=== PATIENT | female | born 1935 | race Caucasian/White ===

== ENCOUNTER 2017-03-01 11:09 | Emergency (ER) | payer OTHER ==
[~2017-03-01] VITALS: Ht 167.6 cm; Wt 97.6 kg
[2017-03-01 12:25] LABS: EOSINOPHIL (%) 0.3 % (0-5); HEMATOCRIT 28.3 % (36.0-46.0); IMMATURE GRANULOCYTE (%) 0.4 % (0.0-0.7); IMMATURE GRANULOCYTE COUNT 0.1 K/uL; INSTRUMENT ABS NEUTROPHIL CT 12.1 K/uL; MCH 31.7 PG (29.0-34.0); MCHC 33.9 G/DL (30.0-36.0); MCV 93.4 FL (83-99); MONOCYTE (%) 4.3 % (3-12); MONOCYTE COUNT 0.6 K/uL (0-0.8); NEUTROPHIL (%) 87.7 % (45-76); NEUTROPHIL COUNT 12.1 K/uL (1.8-6.4); PLATELET COUNT 163 K/uL (156-360); RBC DIS.WIDTH-CV 12.8 % (11.8-14.6); RBC DIS.WIDTH-SD 44.1 % (39-53); RED BLOOD COUNT 3.03 M/uL (3.80-5.20); WHITE BLOOD COUNT 13.8 K/uL (4.1-10.2)
[2017-03-01 12:36] LABS: CHLORIDE 110 mEq/L (99-109); POTASSIUM 3.5 mEq/L (3.7-5.4); SODIUM 141 mEq/L (136-147)
[2017-03-01 12:38] LABS: GLUCOSE 141 mg/dL (70-99)
[2017-03-01 12:40] LABS: ANION GAP 8 MEQ/L (2-14); TOTAL BILIRUBIN 0.7 mg/dL (0.0-1.0)
[2017-03-01 12:42] LABS: ALKALINE PHOSPHATASE 63 IU/L (3-129); GFR ESTIMATE (CALCULATED) > 59 mL/min/
[2017-03-01 12:43] LABS: UREA NITROGEN (BUN) 19 mg/dL (9-23)
[2017-03-01 12:45] LABS: LIPASE 38 U/L (1.0-51.0)
[2017-03-01] MEDS ORDERED: AMLODIPINE BESYL5 MG PO (14:24)
[2017-03-01] MEDS ORDERED: POTASSIUM CHLOR8 ME3 PO (14:25)
[2017-03-01] MEDS ORDERED: QUINAPRIL HCL40 MG PO (14:25)
[2017-03-01] MEDS ORDERED: DONEPEZIL HCL10 MG PO (14:25)
[2017-03-01] MEDS ORDERED: PAROXETINE HCL40 MG PO (14:25)
[2017-03-01 14:30] LABS: INTER. NORMALIZED RATIO 1.2; PROTHROMBIN TIME 13.2 SEC (10.2-12.9)
[2017-03-01 14:32] LABS: PTT 24.8 SEC (25-37)
[2017-03-01 14:34] LABS: ADD MIUA? NO; BILIRUBIN NEGATIVE; BLOOD NEGATIVE; COLOR YELLOW ((YELLOW)); GLUCOSE (STRIP) NEGATIVE; KETONES NEGATIVE; LEUKOCYTES NEGATIVE; NITRITE NEGATIVE; PROTEIN (STRIP) 30; SPECIFIC GRAVITY 1.038 (1.000-1.030); UCUL ADDED? NO; UROBILINOGEN 0.2 MG/DL (0.2-1.0)
[2017-03-01 15:38] VITALS: BP 165/76
== END 2017-03-01 15:39 | disposition short-term general hospital (02) ==
LOC: EME 11:09
PROVIDERS: Emergency Medicine
DX: S36.031A Moderate laceration of spleen, initial encounter (principal); W01.0XXA Fall on same level from slipping, tripping and stumbling without subsequent striking against object, initial encounter; Y92.511 Restaurant or cafe as the place of occurrence of the external cause; D64.9 Anemia, unspecified; K44.9 Diaphragmatic hernia without obstruction or gangrene; J90 Pleural effusion, not elsewhere classified; N28.1 Cyst of kidney, acquired; I70.0 Atherosclerosis of aorta; M85.88 Other specified disorders of bone density and structure, other site; M51.37 Other intervertebral disc degeneration, lumbosacral region; M43.06 Spondylolysis, lumbar region; Z90.49 Acquired absence of other specified parts of digestive tract; I10 Essential (primary) hypertension; Z87.891 Personal history of nicotine dependence
CPT/HCPCS: 74177; 80053; 81003; 83605; 83690; 85025; 85610; 85730; 86850; 86900; 86901; 93005; 99281; 99285; J2405; J7030

== ENCOUNTER 2017-06-24 16:54 | Inpatient (IN) | payer OTHER ==
[~2017-06-24] VITALS: Ht 162.6 cm; Wt 86.9 kg
[~2017-06-24 16:54] MED LIST: AMLODIPINE BESYL5 MG PO; DONEPEZIL HCL10 MG PO; PAROXETINE HCL40 MG PO; POTASSIUM CHLOR8 ME3 PO; QUINAPRIL HCL40 MG PO
[2017-06-24] MEDS ORDERED: MYRBETRIQ25 MG PO (17:38)
[2017-06-24 17:51] LABS: HEMATOCRIT 28.1 % (36.0-46.0); HEMOGLOBIN 9.4 G/DL (11.9-15.5); MCH 29.8 PG (29.0-34.0); MCHC 33.5 G/DL (30.0-36.0); MCV 89.2 FL (83-99); PLATELET COUNT 528 K/uL (156-360); RBC DIS.WIDTH-SD 48.7 % (39-53); RED BLOOD COUNT 3.15 M/uL (3.80-5.20); WHITE BLOOD COUNT 9.5 K/uL (4.1-10.2)
[2017-06-24 18:02] LABS: ALBUMIN 3.1 g/dL (3.2-4.8); CHLORIDE 97 mEq/L (99-109); POTASSIUM 4.1 mEq/L (3.7-5.4); SODIUM 138 mEq/L (136-147)
[2017-06-24 18:04] LABS: GLUCOSE 125 mg/dL (70-99); TOTAL PROTEIN 6.8 g/dL (6.4-8.3)
[2017-06-24 18:06] LABS: TOTAL BILIRUBIN 0.6 mg/dL (0.0-1.0)
[2017-06-24 18:08] LABS: ALKALINE PHOSPHATASE 120 IU/L (3-129); CREATININE 5.5 mg/dL (0.6-1.3); GFR ESTIMATE (CALCULATED) 8 mL/min/
[2017-06-24 18:10] LABS: AST (GOT) 17 IU/L (2-34)
[2017-06-24 18:11] LABS: ALT (GPT) 12 IU/L (3-49)
[2017-06-24 18:12] LABS: UREA NITROGEN (BUN) 118 mg/dL (9-23)
[2017-06-24] MEDS ORDERED: FUROSEMIDE40 MG PO (18:35)
[2017-06-24] MEDS ORDERED: XARELTO20 MG PO (18:36)
[2017-06-24] MEDS ORDERED: ADULT ASPIRIN81 MG PO (18:36)
[2017-06-24] MEDS ORDERED: VITAMIN D31000 UNIT PO (18:36)
[2017-06-24] MEDS ORDERED: METOLAZONE2.5 MG PO (18:36)
[2017-06-24] MEDS ORDERED: XARELTO15 MG PO (18:36)
[2017-06-24 19:56] LABS: APPEARANCE CLEAR ((CLEAR)); BILIRUBIN NEGATIVE; BLOOD NEGATIVE; COLOR YELLOW ((YELLOW)); GLUCOSE (STRIP) NEGATIVE; KETONES NEGATIVE; LEUKOCYTES NEGATIVE; NITRITE NEGATIVE; PROTEIN (STRIP) NEGATIVE; SPECIFIC GRAVITY 1.012 (1.000-1.030); UCUL ADDED? NO; UROBILINOGEN 0.2 MG/DL (0.2-1.0)
[2017-06-24 20:03] LABS: ACETAMINOPHEN (TYLENOL) < 10 mcg/mL (10-30); SALICYLATE < 5.0 MG/DL (15-30)
[2017-06-24 20:09] LABS: BASE EXCESS -0.9 mEq/L (-3 to +3); BICARBONATE 23.4 mEq/L (22-26); COMMENTS - BLOOD GASES C+; FI02 21 %; PCO2 36 mm Hg (35-45); PO2 68 mm Hg (80-100); SITE RR; TOTAL RESP RATE 16 resp/min; pH 7.42 (7.35-7.45)
[2017-06-24 20:57] LABS: PTT 34.9 SEC (25-37)
[2017-06-24 20:59] LABS: INTER. NORMALIZED RATIO 3.3
[2017-06-25] VITALS (7 sets, daily range): BP systolic 91–126; BP diastolic 50–59
[2017-06-25 02:33] LABS: PHOSPHORUS 5.4 mg/dL (2.5-4.9)
[2017-06-25 06:12] LABS: BASOPHIL (%) 0.7 % (0-1); BASOPHIL COUNT 0.1 K/uL (0-0.1); EOSINOPHIL (%) 3.5 % (0-5); EOSINOPHIL COUNT 0.4 K/uL (0-0.3); HEMATOCRIT 26.8 % (36.0-46.0); HEMOGLOBIN 8.6 G/DL (11.9-15.5); IMMATURE GRANULOCYTE (%) 0.5 % (0.0-0.7); LYMPHOCYTE (%) 31.2 % (15-42); LYMPHOCYTE COUNT 3.2 K/uL (1.0-2.8); MCH 28.8 PG (29.0-34.0); MCHC 32.1 G/DL (30.0-36.0); MCV 89.6 FL (83-99); MONOCYTE COUNT 0.7 K/uL (0-0.8); NEUTROPHIL (%) 57.1 % (45-76); NEUTROPHIL COUNT 5.8 K/uL (1.8-6.4); PLATELET COUNT 453 K/uL (156-360); RBC DIS.WIDTH-CV 15.2 % (11.8-14.6); RBC DIS.WIDTH-SD 50.2 % (39-53); RED BLOOD COUNT 2.99 M/uL (3.80-5.20); WHITE BLOOD COUNT 10.2 K/uL (4.1-10.2)
[2017-06-25 06:21] LABS: INTER. NORMALIZED RATIO 2.3
[2017-06-25 06:24] LABS: PTT 30.6 SEC (25-37)
[2017-06-25 06:39] LABS: ALBUMIN 2.5 G/DL (3.2-4.8); ALKALINE PHOSPHATASE 97 IU/L (3-129); ALT (GPT) 9 IU/L (3-49); AST (GOT) 13 IU/L (2-34); CHLORIDE 101 MEQ/L (99-109); CREATININE 4.6 MG/DL (0.6-1.3); GFR ESTIMATE (CALCULATED) 10 mL/min/; GLUCOSE 94 mg/dL (70-99); PHOSPHORUS 4.9 mg/dL (2.5-4.9); SODIUM 136 MEQ/L (136-147); TOTAL BILIRUBIN 0.6 MG/DL (0.0-1.0); TOTAL PROTEIN 5.4 G/DL (6.4-8.3)
[2017-06-25 06:42] LABS: UREA NITROGEN (BUN) 101 mg/dL (9-23)
[2017-06-25 10:01] LABS: INTER. NORMALIZED RATIO 2.2
[2017-06-25 10:03] LABS: PTT 31.8 SEC (25-37)
[2017-06-26 03:32] VITALS: BP 110/57
[2017-06-26 07:30] VITALS: BP 103/55
[2017-06-26 09:04] LABS: HEMOGLOBIN 8.9 G/DL (11.9-15.5); MCH 29.8 PG (29.0-34.0); MCV 90.3 FL (83-99); PLATELET COUNT 394 K/uL (156-360); RBC DIS.WIDTH-CV 15.3 % (11.8-14.6); RBC DIS.WIDTH-SD 50.9 % (39-53); RED BLOOD COUNT 2.99 M/uL (3.80-5.20)
[2017-06-26 09:31] LABS: CHLORIDE 102 MEQ/L (99-109); CREATININE 3.8 MG/DL (0.6-1.3); GFR ESTIMATE (CALCULATED) 12 mL/min/; GLUCOSE 97 mg/dL (70-99); POTASSIUM 3.7 MEQ/L (3.7-5.4); SODIUM 136 MEQ/L (136-147); UREA NITROGEN (BUN) 91 mg/dL (9-23)
[2017-06-26 11:00] VITALS: BP 118/56
[2017-06-26 15:30] VITALS: BP 111/56
[2017-06-26 15:32] LABS: INTER. NORMALIZED RATIO 1.6
[2017-06-26 15:35] LABS: PTT 61.8 SEC (25-37)
[2017-06-26 19:33] VITALS: BP 114/68
[2017-06-26 23:43] VITALS: BP 136/60
[2017-06-27 03:57] VITALS: BP 129/61
[2017-06-27 07:15] LABS: HEMATOCRIT 27.1 % (36.0-46.0); HEMOGLOBIN 8.6 G/DL (11.9-15.5); MCH 28.4 PG (29.0-34.0); MCHC 31.7 G/DL (30.0-36.0); MCV 89.4 FL (83-99); PLATELET COUNT 435 K/uL (156-360); RBC DIS.WIDTH-CV 15.3 % (11.8-14.6); RBC DIS.WIDTH-SD 49.7 % (39-53); RED BLOOD COUNT 3.03 M/uL (3.80-5.20); WHITE BLOOD COUNT 10.6 K/uL (4.1-10.2)
[2017-06-27 07:36] LABS: INTER. NORMALIZED RATIO 1.5
[2017-06-27 07:39] LABS: CHLORIDE 103 MEQ/L (99-109); CREATININE 3.3 MG/DL (0.6-1.3); GFR ESTIMATE (CALCULATED) 14 mL/min/; GLUCOSE 93 mg/dL (70-99); POTASSIUM 3.6 MEQ/L (3.7-5.4); SODIUM 135 MEQ/L (136-147); UREA NITROGEN (BUN) 81 mg/dL (9-23)
[2017-06-27 07:55] VITALS: BP 139/68
[2017-06-27 08:11] LABS: PTT 59.7 SEC (25-37)
[2017-06-27 11:23] VITALS: BP 116/57
[2017-06-27 16:05] VITALS: BP 129/58
[2017-06-27 18:53] VITALS: BP 112/57
[2017-06-27 22:37] VITALS: BP 116/74
[2017-06-28 03:42] VITALS: BP 0104/57
[2017-06-28 06:59] LABS: HEMATOCRIT 26.6 % (36.0-46.0); HEMOGLOBIN 8.4 G/DL (11.9-15.5); MCH 28.3 PG (29.0-34.0); MCHC 31.6 G/DL (30.0-36.0); MCV 89.6 FL (83-99); PLATELET COUNT 444 K/uL (156-360); RBC DIS.WIDTH-CV 15.2 % (11.8-14.6); RBC DIS.WIDTH-SD 49.4 % (39-53); RED BLOOD COUNT 2.97 M/uL (3.80-5.20); WHITE BLOOD COUNT 10.5 K/uL (4.1-10.2)
[2017-06-28 07:06] LABS: INTER. NORMALIZED RATIO 1.6
[2017-06-28 07:09] LABS: PTT 51.6 SEC (25-37)
[2017-06-28 07:31] LABS: ALBUMIN 2.5 G/DL (3.2-4.8); CHLORIDE 104 MEQ/L (99-109); CREATININE 2.7 MG/DL (0.6-1.3); GFR ESTIMATE (CALCULATED) 18 mL/min/; GLUCOSE 110 mg/dL (70-99); GLUCOSE 111 mg/dL (70-99); PHOSPHORUS 3.7 mg/dL (2.5-4.9); POTASSIUM 3.6 MEQ/L (3.7-5.4); SODIUM 135 MEQ/L (136-147); SODIUM 136 MEQ/L (136-147); UREA NITROGEN (BUN) 71 mg/dL (9-23); UREA NITROGEN (BUN) 72 mg/dL (9-23)
[2017-06-28 07:33] VITALS: BP 125/59
[2017-06-28 14:43] LABS: INTER. NORMALIZED RATIO 1.9
[2017-06-28 14:46] LABS: PTT 40.3 SEC (25-37)
[2017-06-28 16:25] VITALS: BP 106/58
[2017-06-28 19:10] VITALS: BP 120/56
[2017-06-28 21:47] LABS: INTER. NORMALIZED RATIO ND; PTT ND SEC (25-37)
[2017-06-28 22:23] LABS: INTER. NORMALIZED RATIO 2.3
[2017-06-28 23:04] VITALS: BP 140/64
[2017-06-29 00:31] LABS: PTT 159.4 SEC (25-37)
[2017-06-29 03:42] VITALS: BP 116/62
[2017-06-29 07:40] VITALS: BP 128/77
[2017-06-29 08:57] LABS: BASOPHIL (%) 0.6 % (0-1); BASOPHIL COUNT 0.1 K/uL (0-0.1); EOSINOPHIL (%) 2.9 % (0-5); EOSINOPHIL COUNT 0.4 K/uL (0-0.3); HEMATOCRIT 29.7 % (36.0-46.0); HEMOGLOBIN 9.5 G/DL (11.9-15.5); IMMATURE GRANULOCYTE (%) 0.5 % (0.0-0.7); LYMPHOCYTE (%) 24.3 % (15-42); MCH 29.7 PG (29.0-34.0); MCV 92.8 FL (83-99); MONOCYTE (%) 7.4 % (3-12); MONOCYTE COUNT 0.9 K/uL (0-0.8); NEUTROPHIL (%) 64.3 % (45-76); NEUTROPHIL COUNT 7.9 K/uL (1.8-6.4); PLATELET COUNT 406 K/uL (156-360); RBC DIS.WIDTH-CV 15.5 % (11.8-14.6); RBC DIS.WIDTH-SD 52.4 % (39-53); WHITE BLOOD COUNT 12.2 K/uL (4.1-10.2)
[2017-06-29 09:11] LABS: INTER. NORMALIZED RATIO 2.4
[2017-06-29 09:27] LABS: ALBUMIN 2.7 G/DL (3.2-4.8); CHLORIDE 106 MEQ/L (99-109); GFR ESTIMATE (CALCULATED) 24 mL/min/; GLUCOSE 112 mg/dL (70-99); PHOSPHORUS 2.6 mg/dL (2.5-4.9); POTASSIUM 4.1 MEQ/L (3.7-5.4); SODIUM 138 MEQ/L (136-147); UREA NITROGEN (BUN) 61 mg/dL (9-23)
[2017-06-29 09:54] LABS: CREATININE 2.1 MG/DL (0.6-1.3)
[2017-06-29 12:06] VITALS: BP 110/67
[2017-06-29 16:58] VITALS: BP 127/69
[2017-06-29 20:19] VITALS: BP 116/71
[2017-06-29 23:30] VITALS: BP 121/58
[2017-06-30 01:59] LABS: APPEARANCE SL.HAZY ((CLEAR)); BILIRUBIN NEGATIVE; BLOOD NEGATIVE; COLOR YELLOW ((YELLOW)); GLUCOSE (STRIP) NEGATIVE; KETONES NEGATIVE; LEUKOCYTES SMALL; NITRITE NEGATIVE; PROTEIN (STRIP) NEGATIVE; SPECIFIC GRAVITY 1.012 (1.000-1.030); UROBILINOGEN 0.2 MG/DL (0.2-1.0)
[2017-06-30 02:05] LABS: BACTERIA RARE /HPF; EPITHELIAL CELLS 2+ /HPF; HYALINE CASTS 0-5 /LPF; MUCUS TRACE /LPF; RED BLOOD CELLS NONE SEEN /HPF (0-5); UCUL ADDED? NO; WHITE BLOOD CELLS 0-5 /HPF (0-5)
[2017-06-30 04:11] VITALS: BP 119/67
[2017-06-30 06:16] LABS: BASOPHIL (%) 0.5 % (0-1); BASOPHIL COUNT 0.1 K/uL (0-0.1); EOSINOPHIL (%) 3.3 % (0-5); EOSINOPHIL COUNT 0.3 K/uL (0-0.3); HEMATOCRIT 23.9 % (36.0-46.0); HEMOGLOBIN 7.6 G/DL (11.9-15.5); IMMATURE GRANULOCYTE (%) 0.3 % (0.0-0.7); LYMPHOCYTE (%) 22.5 % (15-42); LYMPHOCYTE COUNT 2.2 K/uL (1.0-2.8); MCH 28.8 PG (29.0-34.0); MCHC 31.8 G/DL (30.0-36.0); MCV 90.5 FL (83-99); MONOCYTE (%) 7.2 % (3-12); MONOCYTE COUNT 0.7 K/uL (0-0.8); NEUTROPHIL (%) 66.2 % (45-76); NEUTROPHIL COUNT 6.5 K/uL (1.8-6.4); PLATELET COUNT 382 K/uL (156-360); RBC DIS.WIDTH-CV 15.6 % (11.8-14.6); RED BLOOD COUNT 2.64 M/uL (3.80-5.20); WHITE BLOOD COUNT 9.9 K/uL (4.1-10.2)
[2017-06-30 06:26] LABS: INTER. NORMALIZED RATIO 3.6
[2017-06-30 06:28] LABS: PTT 69.5 SEC (25-37)
[2017-06-30 06:44] LABS: ALBUMIN 2.2 G/DL (3.2-4.8); CHLORIDE 107 MEQ/L (99-109); GFR ESTIMATE (CALCULATED) 33 mL/min/; GLUCOSE 110 mg/dL (70-99); PHOSPHORUS 2.5 mg/dL (2.5-4.9); SODIUM 139 MEQ/L (136-147); UREA NITROGEN (BUN) 49 mg/dL (9-23)
[2017-06-30 06:46] LABS: CREATININE 1.6 MG/DL (0.6-1.3)
[2017-06-30 07:00] VITALS: BP 131/66
[2017-06-30 08:49] LABS: HEMATOCRIT 26.1 % (36.0-46.0); HEMOGLOBIN 8.3 G/DL (11.9-15.5); MCV 90.9 FL (83-99)
[2017-06-30 08:54] LABS: IRON 19 MCG/DL (35-150); TRANSFERRIN (TIBC) 94.5 mg/dL (215-380); TRANSFERRIN SATUR. 20 % (20-55)
[2017-06-30 09:27] LABS: FERRITIN 442 NG/ML (10-291)
[2017-06-30 11:10] VITALS: BP 136/70
[2017-06-30 15:00] VITALS: BP 117/60
[2017-06-30 19:30] VITALS: BP 146/80
[2017-07-01] VITALS: BP 140/77
[2017-07-01 06:45] LABS: BASOPHIL (%) 0.3 % (0-1); EOSINOPHIL (%) 2.6 % (0-5); EOSINOPHIL COUNT 0.3 K/uL (0-0.3); HEMATOCRIT 22.9 % (36.0-46.0); HEMOGLOBIN 7.1 G/DL (11.9-15.5); IMMATURE GRANULOCYTE (%) 0.4 % (0.0-0.7); LYMPHOCYTE (%) 24.3 % (15-42); LYMPHOCYTE COUNT 2.5 K/uL (1.0-2.8); MCH 28.6 PG (29.0-34.0); MCV 92.3 FL (83-99); MONOCYTE (%) 7.6 % (3-12); MONOCYTE COUNT 0.8 K/uL (0-0.8); NEUTROPHIL (%) 64.8 % (45-76); NEUTROPHIL COUNT 6.8 K/uL (1.8-6.4); NRBC (%) 0.2 /100 WBC (0-0); PLATELET COUNT 349 K/uL (156-360); RBC DIS.WIDTH-CV 15.5 % (11.8-14.6); RBC DIS.WIDTH-SD 52.2 % (39-53); RED BLOOD COUNT 2.48 M/uL (3.80-5.20); WHITE BLOOD COUNT 10.4 K/uL (4.1-10.2)
[2017-07-01 06:48] LABS: INTER. NORMALIZED RATIO 4.1
[2017-07-01 07:00] LABS: PTT 35.6 SEC (25-37)
[2017-07-01 07:10] LABS: ALBUMIN 3.1 G/DL (3.2-4.8); CHLORIDE 107 MEQ/L (99-109); CREATININE 1.5 MG/DL (0.6-1.3); GFR ESTIMATE (CALCULATED) 35 mL/min/; GLUCOSE 106 mg/dL (70-99); POTASSIUM 4.6 MEQ/L (3.7-5.4); SODIUM 139 MEQ/L (136-147); UREA NITROGEN (BUN) 44 mg/dL (9-23)
[2017-07-01 07:55] VITALS: BP 133/77
[2017-07-01 08:58] LABS: HEMATOCRIT 23.1 % (36.0-46.0); HEMOGLOBIN 7.6 G/DL (11.9-15.5); MCV 90.6 FL (83-99)
[2017-07-01 12:43] VITALS: BP 152/79
[2017-07-01 13:06] VITALS: BP 143/86
[2017-07-01 15:40] VITALS: BP 156/90
[2017-07-01 19:36] VITALS: BP 147/75
[2017-07-02 04:31] VITALS: BP 142/76
[2017-07-02 06:15] LABS: BASOPHIL (%) 0.5 % (0-1); BASOPHIL COUNT 0.1 K/uL (0-0.1); EOSINOPHIL (%) 2.7 % (0-5); EOSINOPHIL COUNT 0.3 K/uL (0-0.3); HEMATOCRIT 25.7 % (36.0-46.0); HEMOGLOBIN 8.5 G/DL (11.9-15.5); IMMATURE GRANULOCYTE (%) 0.5 % (0.0-0.7); LYMPHOCYTE (%) 17.3 % (15-42); LYMPHOCYTE COUNT 1.9 K/uL (1.0-2.8); MCH 29.7 PG (29.0-34.0); MCHC 33.1 G/DL (30.0-36.0); MCV 89.9 FL (83-99); MONOCYTE (%) 7.8 % (3-12); MONOCYTE COUNT 0.9 K/uL (0-0.8); NEUTROPHIL (%) 71.2 % (45-76); NEUTROPHIL COUNT 7.9 K/uL (1.8-6.4); PLATELET COUNT 320 K/uL (156-360); RBC DIS.WIDTH-CV 15.1 % (11.8-14.6); RED BLOOD COUNT 2.86 M/uL (3.80-5.20); WHITE BLOOD COUNT 11.1 K/uL (4.1-10.2)
[2017-07-02 06:16] LABS: INTER. NORMALIZED RATIO 3.2
[2017-07-02 06:54] LABS: ALBUMIN 2.9 G/DL (3.2-4.8); CHLORIDE 102 MEQ/L (99-109); CREATININE 1.3 MG/DL (0.6-1.3); GFR ESTIMATE (CALCULATED) 42 mL/min/; GLUCOSE 101 mg/dL (70-99); POTASSIUM 3.9 MEQ/L (3.7-5.4); SODIUM 138 MEQ/L (136-147); UREA NITROGEN (BUN) 39 mg/dL (9-23)
[2017-07-02 06:56] LABS: PHOSPHORUS 2.8 mg/dL (2.5-4.9)
[2017-07-02 07:15] VITALS: BP 134/89
[2017-07-02 08:28] LABS: CHLORIDE 104 mEq/L (99-109); SODIUM 136 mEq/L (136-147)
[2017-07-02 08:30] LABS: GLUCOSE 98 mg/dL (70-99)
[2017-07-02 08:33] LABS: CREATININE 1.3 mg/dL (0.6-1.3); GFR ESTIMATE (CALCULATED) 42 mL/min/
[2017-07-02 08:34] LABS: UREA NITROGEN (BUN) 41 mg/dL (9-23)
[2017-07-02] MEDS ORDERED: FERROUS SULFAT325 MG PO (10:02)
[2017-07-02] MEDS ORDERED: AUGMENTIN875 MG PO (10:02)
[2017-07-02] MEDS ORDERED: COUMADIN1 MG PO (10:03)
[2017-07-02] MEDS ORDERED: SENNA PLUS TAB1 EACH PO (10:04)
[2017-07-02 11:20] VITALS: BP 124/67
[2017-07-02 14:36] LABS: TROP-I INTERPRETATION NEGATIVE; TROPONIN-I 0.05 ng/mL (0.0-0.30)
[2017-07-02 15:30] VITALS: BP 138/78
[2017-07-02 20:58] VITALS: BP 142/81
[2017-07-02 23:15] VITALS: BP 134/81
[2017-07-03 04:00] VITALS: BP 126/78
[2017-07-03 06:49] LABS: WHITE BLOOD COUNT 11.3 K/uL (4.1-10.2)
[2017-07-03 06:50] LABS: BASOPHIL (%) 0.4 % (0-1); EOSINOPHIL (%) 3.3 % (0-5); EOSINOPHIL COUNT 0.4 K/uL (0-0.3); HEMATOCRIT 26.6 % (36.0-46.0); HEMOGLOBIN 8.7 G/DL (11.9-15.5); IMMATURE GRANULOCYTE (%) 0.3 % (0.0-0.7); LYMPHOCYTE (%) 22.9 % (15-42); LYMPHOCYTE COUNT 2.6 K/uL (1.0-2.8); MCH 29.4 PG (29.0-34.0); MCHC 32.7 G/DL (30.0-36.0); MCV 89.9 FL (83-99); MONOCYTE (%) 8.8 % (3-12); NEUTROPHIL (%) 64.3 % (45-76); NEUTROPHIL COUNT 7.3 K/uL (1.8-6.4); PLATELET COUNT 302 K/uL (156-360); RBC DIS.WIDTH-SD 49.3 % (39-53); RED BLOOD COUNT 2.96 M/uL (3.80-5.20)
[2017-07-03 06:59] LABS: INTER. NORMALIZED RATIO 2.7
[2017-07-03 07:09] LABS: CHLORIDE 101 MEQ/L (99-109); CREATININE 1.2 MG/DL (0.6-1.3); GFR ESTIMATE (CALCULATED) 46 mL/min/; GLUCOSE 93 mg/dL (70-99); POTASSIUM 3.6 MEQ/L (3.7-5.4); SODIUM 137 MEQ/L (136-147); UREA NITROGEN (BUN) 40 mg/dL (9-23)
[2017-07-03 07:11] LABS: ALBUMIN 2.7 G/DL (3.2-4.8); CHLORIDE 101 MEQ/L (99-109); CREATININE 1.2 MG/DL (0.6-1.3); GFR ESTIMATE (CALCULATED) 46 mL/min/; GLUCOSE 88 mg/dL (70-99); PHOSPHORUS 3.4 mg/dL (2.5-4.9); POTASSIUM 3.8 MEQ/L (3.7-5.4); SODIUM 135 MEQ/L (136-147); UREA NITROGEN (BUN) 39 mg/dL (9-23)
[2017-07-03 07:30] VITALS: BP 123/73
[2017-07-03] MEDS ORDERED: FUROSEMIDE20 MG PO (08:02)
[2017-07-03] MEDS ORDERED: MICRO-K10 ME2 PO (08:04)
[2017-07-03] MEDS ORDERED: DILTIAZEM 24HR120 MG PO (11:13)
[2017-07-03 11:28] VITALS: BP 110/74
== END 2017-07-03 15:26 | disposition home health service (06) | DRG 682 ==
LOC: EME 16:54 → EDOF 19:21 → 5EAST 19:21 → ENRESERV 19:38 → 5EAST 23:58
PROVIDERS: Emergency Medicine; Internal Medicine; Internal Medicine Nephrology; Physician Assistant; Physician Assistant Medical
PROC: 30233N1 Transfusion of Nonautologous Red Blood Cells into Peripheral Vein, Percutaneous Approach (ICD-10-PCS; principal; 2017-07-01)
DX: N17.0 Acute kidney failure with tubular necrosis (principal); J18.9 Pneumonia, unspecified organism; F05 Delirium due to known physiological condition; E46 Unspecified protein-calorie malnutrition; E87.1 Hypo-osmolality and hyponatremia; E87.2 Acidosis; I31.3 Pericardial effusion (noninflammatory); Z51.5 Encounter for palliative care; J90 Pleural effusion, not elsewhere classified; J98.11 Atelectasis; I47.1 Supraventricular tachycardia; F33.9 Major depressive disorder, recurrent, unspecified; G31.83 Neurocognitive disorder with Lewy bodies; F02.80 Dementia in other diseases classified elsewhere, unspecified severity, without behavioral disturbance, psychotic disturbance, mood disturbance, and anxiety; G30.9 Alzheimer's disease, unspecified; E83.39 Other disorders of phosphorus metabolism; E86.0 Dehydration; E87.6 Hypokalemia; E87.70 Fluid overload, unspecified; I10 Essential (primary) hypertension; I71.4 Abdominal aortic aneurysm, without rupture; Z96.653 Presence of artificial knee joint, bilateral; D50.9 Iron deficiency anemia, unspecified; M19.90 Unspecified osteoarthritis, unspecified site; I87.2 Venous insufficiency (chronic) (peripheral); I73.9 Peripheral vascular disease, unspecified; M47.816 Spondylosis without myelopathy or radiculopathy, lumbar region; M81.0 Age-related osteoporosis without current pathological fracture; I95.9 Hypotension, unspecified; E66.9 Obesity, unspecified; Z91.81 History of falling; Z79.01 Long term (current) use of anticoagulants; Z90.710 Acquired absence of both cervix and uterus; Z87.891 Personal history of nicotine dependence; Z68.30 Body mass index [BMI] 30.0-30.9, adult; Z86.79 Personal history of other diseases of the circulatory system; Z79.82 Long term (current) use of aspirin; Q67.7 Pectus carinatum; Z88.2 Allergy status to sulfonamides; Z88.4 Allergy status to anesthetic agent; Z86.718 Personal history of other venous thrombosis and embolism; Z90.49 Acquired absence of other specified parts of digestive tract; Z84.1 Family history of disorders of kidney and ureter
CPT/HCPCS: 36600; 70450; 71045; 74176; 76770; 80048; 80048 91; 80053; 80069; 81003; 82272; 82436; 82728; 82803; 83540; 83605; 83735; 83935; 84100; 84133; 84300; 84466; 84484; 85014; 85018; 85025; 85027; 85610; 85730; 86850; 86900; 86901; 86920; 87040; 93005; 97530 GP; 99281; 99285; G0480; J0456; J0696; J1940; J2405; J7030; P9016; P9047

== ENCOUNTER 2017-07-06 21:28 | Observation (INO) | payer OTHER ==
[~2017-07-06] VITALS: Ht 160 cm; Wt 93.0 kg
[~2017-07-06 21:28] MED LIST changes: +ADULT ASPIRIN81 MG PO; +AUGMENTIN875 MG PO; +COUMADIN1 MG PO; +DILTIAZEM 24HR120 MG PO; +FERROUS SULFAT325 MG PO; +FUROSEMIDE20 MG PO; +FUROSEMIDE40 MG PO; +METOLAZONE2.5 MG PO; +MICRO-K10 ME2 PO; +MYRBETRIQ25 MG PO; +SENNA PLUS TAB1 EACH PO; +VITAMIN D31000 UNIT PO; +XARELTO15 MG PO; +XARELTO20 MG PO
[2017-07-06 23:00] LABS: BASOPHIL (%) 0.5 % (0-1); BASOPHIL COUNT 0.1 K/uL (0-0.1); EOSINOPHIL COUNT 0.5 K/uL (0-0.3); HEMATOCRIT 28.2 % (36.0-46.0); HEMOGLOBIN 9.2 G/DL (11.9-15.5); IMMATURE GRANULOCYTE (%) 0.4 % (0.0-0.7); LYMPHOCYTE (%) 16.4 % (15-42); LYMPHOCYTE COUNT 1.8 K/uL (1.0-2.8); MCH 30.3 PG (29.0-34.0); MCHC 32.6 G/DL (30.0-36.0); MCV 92.8 FL (83-99); MONOCYTE (%) 6.7 % (3-12); MONOCYTE COUNT 0.8 K/uL (0-0.8); PLATELET COUNT 376 K/uL (156-360); RBC DIS.WIDTH-CV 15.4 % (11.8-14.6); RBC DIS.WIDTH-SD 52.2 % (39-53); RED BLOOD COUNT 3.04 M/uL (3.80-5.20); WHITE BLOOD COUNT 11.1 K/uL (4.1-10.2)
[2017-07-06 23:16] LABS: CHLORIDE 108 mEq/L (99-109); POTASSIUM 4.1 mEq/L (3.7-5.4); SODIUM 141 mEq/L (136-147)
[2017-07-06 23:18] LABS: GLUCOSE 110 mg/dL (70-99); TROP-I INTERPRETATION NEGATIVE; TROPONIN-I 0.03 ng/mL (0.0-0.30)
[2017-07-06 23:21] LABS: APPEARANCE SL.HAZY ((CLEAR)); BILIRUBIN NEGATIVE; BLOOD NEGATIVE; COLOR YELLOW ((YELLOW)); GLUCOSE (STRIP) NEGATIVE; KETONES NEGATIVE; LEUKOCYTES NEGATIVE; NITRITE NEGATIVE; PROTEIN (STRIP) NEGATIVE; SPECIFIC GRAVITY 1.016 (1.000-1.030)
[2017-07-06 23:22] LABS: GFR ESTIMATE (CALCULATED) 56 mL/min/
[2017-07-06 23:23] LABS: UREA NITROGEN (BUN) 30 mg/dL (9-23)
[2017-07-06 23:51] LABS: AMORPHOUS URATES CRYSTALS 1+; BACTERIA 1+ /HPF; EPITHELIAL CELLS 2+ /HPF; UCUL ADDED? YES
[2017-07-06 23:52] LABS: HYALINE CASTS 0-5 /LPF; MUCUS NONE SEEN /LPF
[2017-07-07] MEDS ORDERED: IRON325 M1 PO (01:07)
[2017-07-07] MEDS ORDERED: DILTIAZEM 24HR120 MG PO (01:07)
[2017-07-07] MEDS ORDERED: MICRO-K10 ME2 PO (01:08)
[2017-07-07] MEDS ORDERED: SENNA PLUS TAB1 EACH PO (01:09)
[2017-07-07 03:21] LABS: INTER. NORMALIZED RATIO 3.8
[2017-07-07 03:46] VITALS: BP 153/85
[2017-07-07 06:00] LABS: INTER. NORMALIZED RATIO 3.6
[2017-07-07 07:46] VITALS: BP 136/86
[2017-07-07 12:13] VITALS: BP 134/72
[2017-07-07] MEDS ORDERED: CEFDINIR300 MG PO (14:35)
[2017-07-07] MEDS ORDERED: AZITHROMYCIN500 M1 PO (14:35)
[2017-07-07 15:43] VITALS: BP 123/82
== END 2017-07-07 16:25 ==
LOC: EME → EDBD 21:28 → EDOF 07-07 00:52 → 4SOUTH 07-07 00:52 → ENRESERV 07-07 00:52 → 4SOUTH 07-07 03:11
PROVIDERS: Emergency Medicine; Hospitalist
DX: J18.9 Pneumonia, unspecified organism (principal); Y95 Nosocomial condition; N39.0 Urinary tract infection, site not specified; S36.039D Unspecified laceration of spleen, subsequent encounter; R41.82 Altered mental status, unspecified; G31.83 Neurocognitive disorder with Lewy bodies; F02.80 Dementia in other diseases classified elsewhere, unspecified severity, without behavioral disturbance, psychotic disturbance, mood disturbance, and anxiety; M19.90 Unspecified osteoarthritis, unspecified site; I73.9 Peripheral vascular disease, unspecified; Z86.718 Personal history of other venous thrombosis and embolism; M81.0 Age-related osteoporosis without current pathological fracture; I71.4 Abdominal aortic aneurysm, without rupture; Z79.01 Long term (current) use of anticoagulants; I48.91 Unspecified atrial fibrillation; S51.811A Laceration without foreign body of right forearm, initial encounter; Z90.49 Acquired absence of other specified parts of digestive tract; Z90.710 Acquired absence of both cervix and uterus; Z88.2 Allergy status to sulfonamides; Z88.8 Allergy status to other drugs, medicaments and biological substances; Z91.81 History of falling
CPT/HCPCS: 70450; 71046; 73080; 73090; 80048; 81003; 83605; 84484; 85025; 85610; 87086; 93005; 94640; 94640 76; 94799; 99281; 99285; G0378; G8978 GP CM; G8979 GP CL; G8980 GP CM; J0456; J0696